=== PATIENT | female | born 1975 | race Caucasian/White ===

== ENCOUNTER 2018-03-03 20:21 | Emergency (ER) | payer MEDICAID, OTHER ==
[~2018-03-03] VITALS: Ht 165.1 cm; Wt 68.0 kg
[~2018-03-03 20:21] MED LIST: FLUO-1 PO; VIST25CA PO
[2018-03-03 20:34] VITALS: BP 130/86; PULSE 104; RESP 16; TEMP 98.4; O2SAT 100
--- NOTE | 2018-03-03 21:13 | PD ---
HPI Chief Complaint: Psychiatric Symptoms Time Seen by Provider: 20:57 Travel History International Travel<30 days: No Contact w/Intl Traveler<30days: No Traveled to known affect area: No History of Present Illness HPI 42-year-old white female presents emergency department under Antonio act by PD. The patient allegedly had sent suicide suggested text messages to her aunt. She had informed police. Patient was placed in the custody. She became very agitated and combative. She started spitting and resisting. The patient admits to being a functional alcoholic and drinking today. The patient states that she lost her job yesterday and her boyfriend broke up her as well. She admits to feeling depressed but she does not have suicidal ideation. No homicidal ideation. She denies any toxic ingestions. She does smoke cigarettes , drinks alcohol on a daily basis, and smokes marijuana on occasion. She denies any medical complaints. PFSH Past Medical History Narrative Medical Anxiety, depression, ADD, chronic alcohol abuse Bipolar Disorder: Yes Anxiety: Yes Depression: Yes Heart Rhythm Problems: No Cardiac Catheterization: No Cardiovascular Problems: Yes (mvp) High Cholesterol: No Congestive Heart Failure: No Diabetes: No Diminished Hearing: No Gastrointestinal Disorders: No Genitourinary: No Heparin Induced Thrombocytopen: No Hypertension: No Musculoskeletal: No Neurologic: No Reproductive: No Respiratory: No Immunizations Current: Yes Sleep Apnea: No Tetanus Vaccination: > 5 Years Influenza Vaccination: Yes ?: Unknown LMP: 02/16/18 : 2 Para: 1 : 1 Past Surgical History Coronary Artery Bypass Graft: No Other Surgery: Yes (BREAST AUGMENTATION) Family History Family Myocardial Infarction: No Social History Alcohol Use: Yes Tobacco Use: Yes Substance Use: Yes Allergies-Medications (Allergen,Severity, Reaction): Coded Allergies: Sulfa (Sulfonamide Antibiotics) (Unverified Allergy, Mild, CHILDHOOD REACTION, 03/03/18) Reported Meds & Prescriptions Reported Meds & Active Scripts Active Reported Vistaril (Hydroxyzine Pamoate) 25 Mg Cap 30 Mg PO BID PRN Prozac (Fluoxetine HCl) 10 Mg Cap 30 Mg PO BID Review of Systems General / Constitutional: No: Fever Eyes: No: Visual changes HENT: No: Headaches Cardiovascular: No: Chest Pain or Discomfort Respiratory: No: Shortness of Breath Gastrointestinal: No: Abdominal Pain Genitourinary: No: Dysuria Musculoskeletal: No: Pain Skin: No Rash Neurologic: No: Weakness Psychiatric: Positive: Anxiety, Depression, Mood Disorder, Substance Abuse, No : Suicidal Ideations, Disorder of Thought, Homicidal Ideation Endocrine: No: Polydipsia Hematologic/Lymphatic: No: Easy Bruising Physical Exam Narrative GENERAL: Well-nourished, well-developed patient. Patient smells of EtOH. She appears intoxicated. SKIN: Warm and dry. HEAD: Normocephalic and atraumatic. EYES: No scleral icterus. No injection or drainage. ENT: No nasal drainage noted. Mucous membranes pink. Airway patent. NECK: Supple, trachea midline. Moves head freely without obvious discomfort. CARDIOVASCULAR: Regular rate and rhythm without murmurs, gallops, or rubs. RESPIRATORY: Breath sounds equal bilaterally. No accessory muscle use. GASTROINTESTINAL: Abdomen soft, non-tender, nondistended. EXTREMITIES: No cyanosis or edema. BACK: Nontender without obvious deformity. No CVA tenderness. NEURO: Patient is alert and oriented. no sensorimotor deficits. Nonfocal. Normal speech. PSYCH: No delusions. No auditory or visual hallucinations. Data Data Last Documented VS Vital Signs Date Time Temp Pulse Resp B/P (MAP) Pulse Ox O2 Delivery O2 Flow Rate FiO2 03/03/18 20:34 98.4 104 16 130/86 (101) 100 Orders Orders Complete Blood Count With Diff (03/03/18 20:45) Comprehensive Metabolic Panel (03/03/18 20:45) Urinalysis - C+S If Indicated (03/03/18 20:45) Ed Urine Pregnancytest Poc (03/03/18 20:45) Psych Screen (03/03/18 20:45) Drug Screen, Random Urine (03/03/18 20:45) Alcohol (Ethanol) (03/03/18 20:45) Salicylates (Aspirin) (03/03/18 20:45) Tylenol (Acetaminophen) (03/03/18 20:45) Labs Laboratory Tests Test 03/03/18 20:50 White Blood Count 6.4 TH/MM3 Red Blood Count 4.22 MIL/MM3 Hemoglobin 14.0 GM/DL Hematocrit 40.4 % Mean Corpuscular Volume 95.6 FL Mean Corpuscular Hemoglobin 33.1 PG Mean Corpuscular Hemoglobin Concent 34.6 % Red Cell Distribution Width 13.0 % Platelet Count 337 TH/MM3 Mean Platelet Volume 7.1 FL Neutrophils (%) (Auto) 43.5 % Lymphocytes (%) (Auto) 48.1 % Monocytes (%) (Auto) 5.7 % Eosinophils (%) (Auto) 1.6 % Basophils (%) (Auto) 1.1 % Neutrophils # (Auto) 2.8 TH/MM3 Lymphocytes # (Auto) 3.1 TH/MM3 Monocytes # (Auto) 0.4 TH/MM3 Eosinophils # (Auto) 0.1 TH/MM3 Basophils # (Auto) 0.1 TH/MM3 CBC Comment DIFF FINAL Differential Comment Urine Color COLORLESS Urine Turbidity CLEAR Urine pH 5.0 Urine Specific [place] 1.001 Urine Protein NEG mg/dL Urine Glucose (UA) NEG mg/dL Urine Ketones NEG mg/dL Urine Occult Blood NEG Urine Nitrite NEG Urine Bilirubin NEG Urine Urobilinogen LESS THAN 2.0 MG/DL Urine Leukocyte Esterase NEG Urine RBC 1 /hpf Urine WBC LESS THAN 1 /hpf Urine Squamous Epithelial Cells <1 /hpf Urine Bacteria OCC /hpf Microscopic Urinalysis Comment CULT NOT INDICATED Blood Urea Nitrogen 15 MG/DL Creatinine 0.77 MG/DL Random Glucose 97 MG/DL Total Protein 7.7 GM/DL Albumin 4.0 GM/DL Calcium Level 8.5 MG/DL Alkaline Phosphatase 67 U/L Aspartate Amino Transf (AST/SGOT) 21 U/L Alanine Aminotransferase (ALT/SGPT) 29 U/L Total Bilirubin 0.1 MG/DL Sodium Level 145 MEQ/L Potassium Level 4.2 MEQ/L Chloride Level 111 MEQ/L Carbon Dioxide Level 24.8 MEQ/L Anion Gap 9 MEQ/L Estimat Glomerular Filtration Rate 82 ML/MIN Salicylates Level 1.7 MG/DL Urine Opiates Screen NEG Acetaminophen Level LESS THAN 2.0 MCG/ML Urine Barbiturates Screen NEG Urine Amphetamines Screen NEG Urine Benzodiazepines Screen NEG Urine Cocaine Screen NEG Urine Cannabinoids Screen NEG Ethyl Alcohol Level 313 MG/DL MDM Medical Decision Making Medical Screen Exam Complete: Yes Emergency Medical Condition: Yes Medical Record Reviewed: Yes Interpretation(s) Laboratory Tests Test 03/03/18 20:50 White Blood Count 6.4 TH/MM3 Red Blood Count 4.22 MIL/MM3 Hemoglobin 14.0 GM/DL Hematocrit 40.4 % Mean Corpuscular Volume 95.6 FL Mean Corpuscular Hemoglobin 33.1 PG Mean Corpuscular Hemoglobin Concent 34.6 % Red Cell Distribution Width 13.0 % Platelet Count 337 TH/MM3 Mean Platelet Volume 7.1 FL Neutrophils (%) (Auto) 43.5 % Lymphocytes (%) (Auto) 48.1 % Monocytes (%) (Auto) 5.7 % Eosinophils (%) (Auto) 1.6 % Basophils (%) (Auto) 1.1 % Neutrophils # (Auto) 2.8 TH/MM3 Lymphocytes # (Auto) 3.1 TH/MM3 Monocytes # (Auto) 0.4 TH/MM3 Eosinophils # (Auto) 0.1 TH/MM3 Basophils # (Auto) 0.1 TH/MM3 CBC Comment DIFF FINAL Differential Comment Urine Color COLORLESS Urine Turbidity CLEAR Urine pH 5.0 Urine Specific [place] 1.001 Urine Protein NEG mg/dL Urine Glucose (UA) NEG mg/dL Urine Ketones NEG mg/dL Urine Occult Blood NEG Urine Nitrite NEG Urine Bilirubin NEG Urine Urobilinogen LESS THAN 2.0 MG/DL Urine Leukocyte Esterase NEG Urine RBC 1 /hpf Urine WBC LESS THAN 1 /hpf Urine Squamous Epithelial Cells <1 /hpf Urine Bacteria OCC /hpf Microscopic Urinalysis Comment CULT NOT INDICATED Blood Urea Nitrogen 15 MG/DL Creatinine 0.77 MG/DL Random Glucose 97 MG/DL Total Protein 7.7 GM/DL Albumin 4.0 GM/DL Calcium Level 8.5 MG/DL Alkaline Phosphatase 67 U/L Aspartate Amino Transf (AST/SGOT) 21 U/L Alanine Aminotransferase (ALT/SGPT) 29 U/L Total Bilirubin 0.1 MG/DL Sodium Level 145 MEQ/L Potassium Level 4.2 MEQ/L Chloride Level 111 MEQ/L Carbon Dioxide Level 24.8 MEQ/L Anion Gap 9 MEQ/L Estimat Glomerular Filtration Rate 82 ML/MIN Salicylates Level 1.7 MG/DL Urine Opiates Screen NEG Acetaminophen Level LESS THAN 2.0 MCG/ML Urine Barbiturates Screen NEG Urine Amphetamines Screen NEG Urine Benzodiazepines Screen NEG Urine Cocaine Screen NEG Urine Cannabinoids Screen NEG Ethyl Alcohol Level 313 MG/DL Differential Diagnosis MDM: High Differential diagnoses: Schizophrenia, schizoaffective disorder, bipolar, anxiety, depression, adjustment reaction, mood disorder NOS, ODD, depressive disorder NOS, dementia, dementia with agitation, psychosis NOS, substance induced mood disorder, DMDD, Asperger syndrome, infection,electrolyte abnormality, malingering. Narrative Course Mental health screening discussed with the patient. Psychiatric screen ordered. The patient has been medically cleared. This is medical clearance for psychiatric admission, alcohol dependence with intoxication Diagnosis Primary Impression: Medical clearance for psychiatric admission Additional Impression: Alcoholism with intoxication Condition: Stable Gianluca Stevens Mar 03, 2018 21:13
[2018-03-03 21:14] LABS: AUTOMATED NEUTROPHIL # 2.8 TH/MM3 (1.8-7.7); BASOPHIL # 0.1 TH/MM3 (0-0.2); BASOPHIL % 1.1 % (0.0-2.0); EOSINOPHIL # 0.1 TH/MM3 (0-0.4); EOSINOPHIL % 1.6 % (0.0-4.0); HEMATOCRIT 40.4 % (35.0-46.0); LYMPH % 48.1 % (9.0-44.0); LYMPHOCYTE # 3.1 TH/MM3 (1.0-4.8); MEAN CELL VOLUME 95.6 FL (80.0-100.0); MEAN CORPUSCULAR HEMOGLOBIN 33.1 PG (27.0-34.0); MEAN CORPUSCULAR HGB CONC 34.6 % (32.0-36.0); MEAN PLATELET VOLUME 7.1 FL (7.0-11.0); MONO % 5.7 % (0.0-8.0); MONOCYTE # 0.4 TH/MM3 (0-0.9); NEUT % 43.5 % (16.0-70.0); PLATELET COUNT 337 TH/MM3 (150-450); RED BLOOD COUNT 4.22 MIL/MM3 (4.00-5.30); WHITE BLOOD COUNT 6.4 TH/MM3 (4.0-11.0)
[2018-03-03 21:15] LABS: BACTERIA, URINE OCC /hpf; BILIRUBIN, URINE NEG (NEG); BLOOD, URINE NEG (NEG); GLUCOSE,URINE NEG (NEG); KETONE, URINE NEG (NEG); NITRITE,URINE NEG (NEG); SQUAMOUS EPITHELIAL CELL URINE <1 /hpf (0-5); URINE COLOR COLORLESS (YELLW/STRAW); URINE LEUKOCYTE ESTERASE NEG (NEG)
[2018-03-03 21:32] LABS: AST (GOT) 21 U/L (15-37); BICARBONATE 24.8 MEQ/L (21.0-32.0); BLOOD UREA NITROGEN 15 MG/DL (7-18); CALCIUM 8.5 MG/DL (8.5-10.1); CHLORIDE 111 MEQ/L (98-107); CREATININE 0.77 MG/DL (0.50-1.00); GLOMERULAR FILTRATION RATE 82 ML/MIN (>89); GLUCOSE,RANDOM 97 MG/DL (74-106); SODIUM (NA) 145 MEQ/L (136-145)
[2018-03-03 21:33] LABS: ALT (GPT) 29 U/L (10-53)
[2018-03-03 21:34] LABS: ALKALINE PHOSPHATASE 67 U/L (45-117); TOTAL BILIRUBIN ADULT 0.1 MG/DL (0.2-1.0); TOTAL PROTEIN 7.7 GM/DL (6.4-8.2)
[2018-03-03 21:51] LABS: ACETAMINOPHEN LESS THAN 2.0 MCG/ML (10.0-30.0)
[2018-03-04 02:12] VITALS: BP 118/58; PULSE 100; RESP 16; TEMP 99.2; O2SAT 95
[2018-03-04 05:41] VITALS: BP 125/81; PULSE 75; RESP 18; TEMP 98.2; O2SAT 98
[2018-03-04 14:05] VITALS: BP 139/86; PULSE 65; RESP 20; TEMP 97.4; O2SAT 99
--- NOTE | 2018-03-04 18:19 | PD ---
Data Data Last Documented VS Vital Signs Date Time Temp Pulse Resp B/P (MAP) Pulse Ox O2 Delivery O2 Flow Rate FiO2 03/04/18 18:28 98.2 62 20 126/76 (93) 97 Room Air Orders Orders Complete Blood Count With Diff (03/03/18 20:45) Comprehensive Metabolic Panel (03/03/18 20:45) Urinalysis - C+S If Indicated (03/03/18 20:45) Ed Urine Pregnancytest Poc (03/03/18 20:45) Psych Screen (03/03/18 20:45) Drug Screen, Random Urine (03/03/18 20:45) Alcohol (Ethanol) (03/03/18 20:45) Salicylates (Aspirin) (03/03/18 20:45) Tylenol (Acetaminophen) (03/03/18 20:45) Diet 1800 Ada Cons Carb (03/04/18 Breakfast) Diet Regular Basic (03/04/18 Lunch) Ed Discharge Order (03/04/18 18:17) Labs Laboratory Tests Test 03/03/18 20:50 White Blood Count 6.4 TH/MM3 Red Blood Count 4.22 MIL/MM3 Hemoglobin 14.0 GM/DL Hematocrit 40.4 % Mean Corpuscular Volume 95.6 FL Mean Corpuscular Hemoglobin 33.1 PG Mean Corpuscular Hemoglobin Concent 34.6 % Red Cell Distribution Width 13.0 % Platelet Count 337 TH/MM3 Mean Platelet Volume 7.1 FL Neutrophils (%) (Auto) 43.5 % Lymphocytes (%) (Auto) 48.1 % Monocytes (%) (Auto) 5.7 % Eosinophils (%) (Auto) 1.6 % Basophils (%) (Auto) 1.1 % Neutrophils # (Auto) 2.8 TH/MM3 Lymphocytes # (Auto) 3.1 TH/MM3 Monocytes # (Auto) 0.4 TH/MM3 Eosinophils # (Auto) 0.1 TH/MM3 Basophils # (Auto) 0.1 TH/MM3 CBC Comment DIFF FINAL Differential Comment Urine Color COLORLESS Urine Turbidity CLEAR Urine pH 5.0 Urine Specific [place] 1.001 Urine Protein NEG mg/dL Urine Glucose (UA) NEG mg/dL Urine Ketones NEG mg/dL Urine Occult Blood NEG Urine Nitrite NEG Urine Bilirubin NEG Urine Urobilinogen LESS THAN 2.0 MG/DL Urine Leukocyte Esterase NEG Urine RBC 1 /hpf Urine WBC LESS THAN 1 /hpf Urine Squamous Epithelial Cells <1 /hpf Urine Bacteria OCC /hpf Microscopic Urinalysis Comment CULT NOT INDICATED Blood Urea Nitrogen 15 MG/DL Creatinine 0.77 MG/DL Random Glucose 97 MG/DL Total Protein 7.7 GM/DL Albumin 4.0 GM/DL Calcium Level 8.5 MG/DL Alkaline Phosphatase 67 U/L Aspartate Amino Transf (AST/SGOT) 21 U/L Alanine Aminotransferase (ALT/SGPT) 29 U/L Total Bilirubin 0.1 MG/DL Sodium Level 145 MEQ/L Potassium Level 4.2 MEQ/L Chloride Level 111 MEQ/L Carbon Dioxide Level 24.8 MEQ/L Anion Gap 9 MEQ/L Estimat Glomerular Filtration Rate 82 ML/MIN Salicylates Level 1.7 MG/DL Urine Opiates Screen NEG Acetaminophen Level LESS THAN 2.0 MCG/ML Urine Barbiturates Screen NEG Urine Amphetamines Screen NEG Urine Benzodiazepines Screen NEG Urine Cocaine Screen NEG Urine Cannabinoids Screen NEG Ethyl Alcohol Level 313 MG/DL MDM Supervised Visit with SHAUNA: Yes Narrative Course Patient seen and examined by me after seen by Salazar SABILLON for the psychiatric department. She does not believe the patient to be threat to herself or to others. She has made contact with the patient's mother whom she lives with and states the patient's never had suicidal homicidal intent before. Patient states that her text messages last night were an attempt to make "it and" and she states that it was the dramatic situation between her and her friends and her now ex-boyfriend. Patient adamantly denies any suicidal homicidal ideation. She was heavily intoxicated last night but is now clinically sober. She is no longer a threat to herself or to others and does not meet Antonio act criteria. I lifted the Antonio act and discharged her home. Diagnosis Primary Impression: Medical clearance for psychiatric admission Additional Impressions: Alcoholism with intoxication Adjustment disorder Disposition: 01 DISCHARGE HOME Condition: Stable Jaime Agarwal MD Mar 04, 2018 18:19
[2018-03-04 18:28] VITALS: BP_SYST 126; BP_SYST 139; BP_DIAS 76; BP_DIAS 86; PULSE 62; PULSE 65; RESP 20; TEMP 97.4; TEMP 98.2; O2SAT 97; O2SAT 99
--- NOTE | 2018-03-04 19:29 | PD ---
History of Present Illness Chief Complaint: Psychiatric Symptoms Time Seen by Provider: 17:45 Travel History International Travel<30 Days: No Contact w/Intl Traveler<30days: No Known affected area: No Legal Status Legal Status: Antonio Act Antonio Act Signed By: Keri Robb Antonio Act Comment: [employer] [facility][id number] History of Present Illness: This is a 42-year-old single, female who presents under a Antonio act for reportedly sending a text message to her aunt stating that she wanted to end everything. Patient has previously been seen at this facility for polysubstance abuse issues. She was admitted inpatient several years ago for substance-induced mood disorder. Reviewed electronic medical record, labs, discuss case with staff. Patient was evaluated in her room and J pod. She reports that she "just lost my job and fianc the past few days". She denies being suicidal, homicidal, having visual or auditory hallucinations. Her speech is clear, logical, and organized. She is alert and oriented 4. There is no indication of internal stimulation or thought blocking. I can elicit no delusional material at this time. Patient reports that she had been working for she [employer] restaurant and after a breakup with her fianc of 6 years she failed to set up for work at which time she was terminated. She states that she has moved back in with her mother. With patient's permission called mother to obtain collateral information. Mother states that she has no qualms about her daughter returning home. She states that she will be at the house to keep an eye on her however, she does not feel that patient would ever try to take her in life. She further states that "I do not know how this happened". She reports that patient has never attempted suicide in the past. Patient reports that she has diagnoses of ADHD, OCD, and bipolar disorder. She reports that she is compliant with her medications and follows up with Chuy at [facility]. 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 PFSH Past Medical History Bipolar Disorder: Yes Anxiety: Yes Depression: Yes Heart Rhythm Problems: No Cardiac Catheterization: No Cardiovascular Problems: Yes (mvp) High Cholesterol: No Congestive Heart Failure: No Diabetes: No Diminished Hearing: No Gastrointestinal Disorders: No Genitourinary: No Heparin Induced Thrombocytopen: No Hypertension: No Musculoskeletal: No Neurologic: No Reproductive: No Respiratory: No Immunizations Current: Yes Sleep Apnea: No Tetanus Vaccination: > 5 Years Influenza Vaccination: Yes ?: Unknown LMP: 02/16/18 : 2 Para: 1 : 1 Past Surgical History Coronary Artery Bypass Graft: No Other Surgery: Yes (BREAST AUGMENTATION) Psychiatric History Psychiatric History ADHD, OCD, bipolar disorder all self-reported. Hx Psychiatric Treatment: DEPRESSION, BI-POLAR DISORDER History of Inpatient Treatment: Yes Guns or firearms in home: No Social History Patient reports that she smokes approximately 1 pack of cigarettes per day and drinks EtOH "socially". She claims to use marijuana on a social basis. Hx Alcohol Use: Yes Hx Tobacco Use: Yes Hx Substance Use: No Substance Use Type: Alcohol, Nicotine/Cigarettes Other Substances Used: ADMITS TO A 1/2 BOTTLE TAQUILLA YESTERDAY -FOR THE FIRST TIME IN 7 DAYS- Hx of Substance Use Treatment: No Family Psychiatric History Patient states that she is unaware of there is been any familial mental health illness diagnoses. However, she states she knows there is been no suicide attempts. Allergies-Medications (Allergen,Severity, Reaction): Coded Allergies: Sulfa (Sulfonamide Antibiotics) (Unverified Allergy, Mild, CHILDHOOD REACTION, 03/03/18) Reported Meds & Prescriptions Reported Meds & Active Scripts Active Reported Vistaril (Hydroxyzine Pamoate) 25 Mg Cap 30 Mg PO BID PRN Prozac (Fluoxetine HCl) 10 Mg Cap 30 Mg PO BID Mental Status Examination Appearance: Appropriate Consciousness: Alert Orientation: x4 Motor Activity: Normal gait Speech: Unremarkable Language: Adequate Fund of Knowledge: Adequate Attention and Concentration: Adequate Memory: Unremarkable Mood: Appropriate, Good Affect: Appropriate, Euthymic Thought Process & Associations: Intact Thought Content: Appropriate Hallucination Type: None Delusion Type: None Suicidal Ideation: No Suicidal Plan: No Suicidal Intention: No Homicidal Ideation: No Homicidal Plan: No Homicidal Intention: No Insight: Fair Judgment: Adequate MDM Medical Decision Making Medical Record Reviewed: Yes Assessment/Plan 42-year-old single, female who presents under Antonio act to this facility for reportedly texting her and that she wanted to "and everything". Upon examination the patient today she is awake, alert, and oriented 4. Her speech is clear, logical, and organized. There is no indication of internal stimulation or thought blocking. Her mood is good her affect is euthymic. She maintains eye contact and interacts appropriately throughout the examination. She reports that she is currently living with her mother after recently losing her job and having breakup with her fianc. Consulted with Dr. Agarwal, ED physician, who agrees with my assessment the patient does not meet Antonio act criteria or inpatient admission criteria. He therefore has lifted her Antonio act. She will be discharged home with instructions to follow-up with Chuy at [facility] as well as being told that she could return here should her condition worsen. Orders Orders Complete Blood Count With Diff (03/03/18 20:45) Comprehensive Metabolic Panel (03/03/18 20:45) Urinalysis - C+S If Indicated (03/03/18 20:45) Ed Urine Pregnancytest Poc (03/03/18 20:45) Psych Screen (03/03/18 20:45) Drug Screen, Random Urine (03/03/18 20:45) Alcohol (Ethanol) (03/03/18 20:45) Salicylates (Aspirin) (03/03/18 20:45) Tylenol (Acetaminophen) (03/03/18 20:45) Diet 1800 Ada Cons Carb (03/04/18 Breakfast) Diet Regular Basic (03/04/18 Lunch) Ed Discharge Order (03/04/18 18:17) Results Vital Signs Date Time Temp Pulse Resp B/P (MAP) Pulse Ox O2 Delivery O2 Flow Rate FiO2 03/04/18 18:28 98.2 62 20 126/76 (93) 97 Room Air 03/04/18 14:05 97.4 65 20 139/86 (103) 99 Room Air 03/04/18 05:41 98.2 75 18 125/81 (96) 98 Room Air 03/04/18 02:12 99.2 100 16 118/58 (78) 95 Room Air 03/03/18 20:34 98.4 104 16 130/86 (101) 100 Laboratory Tests Test 03/03/18 20:50 White Blood Count 6.4 Red Blood Count 4.22 Hemoglobin 14.0 Hematocrit 40.4 Mean Corpuscular Volume 95.6 Mean Corpuscular Hemoglobin 33.1 Mean Corpuscular Hemoglobin Concent 34.6 Red Cell Distribution Width 13.0 Platelet Count 337 Mean Platelet Volume 7.1 Neutrophils (%) (Auto) 43.5 Lymphocytes (%) (Auto) 48.1 Monocytes (%) (Auto) 5.7 Eosinophils (%) (Auto) 1.6 Basophils (%) (Auto) 1.1 Neutrophils # (Auto) 2.8 Lymphocytes # (Auto) 3.1 Monocytes # (Auto) 0.4 Eosinophils # (Auto) 0.1 Basophils # (Auto) 0.1 CBC Comment DIFF FINAL Differential Comment Urine Color COLORLESS Urine Turbidity CLEAR Urine pH 5.0 Urine Specific [place] 1.001 Urine Protein NEG Urine Glucose (UA) NEG Urine Ketones NEG Urine Occult Blood NEG Urine Nitrite NEG Urine Bilirubin NEG Urine Urobilinogen LESS THAN 2.0 Urine Leukocyte Esterase NEG Urine RBC 1 Urine WBC LESS THAN 1 Urine Squamous Epithelial Cells <1 Urine Bacteria OCC Microscopic Urinalysis Comment CULT NOT INDICATED Blood Urea Nitrogen 15 Creatinine 0.77 Random Glucose 97 Total Protein 7.7 Albumin 4.0 Calcium Level 8.5 Alkaline Phosphatase 67 Aspartate Amino Transf (AST/SGOT) 21 Alanine Aminotransferase (ALT/SGPT) 29 Total Bilirubin 0.1 Sodium Level 145 Potassium Level 4.2 Chloride Level 111 Carbon Dioxide Level 24.8 Anion Gap 9 Estimat Glomerular Filtration Rate 82 Salicylates Level 1.7 Urine Opiates Screen NEG Acetaminophen Level LESS THAN 2.0 Urine Barbiturates Screen NEG Urine Amphetamines Screen NEG Urine Benzodiazepines Screen NEG Urine Cocaine Screen NEG Urine Cannabinoids Screen NEG Ethyl Alcohol Level 313 Diagnosis Primary Impression: Adjustment disorder Psychiatrically Cleared: Yes Departure Forms: Tests/Procedures Patient Instructions: General Instructions Additional Instructions: FOLLOW UP WITH PSYCHIATRIC FOLLOW UP PRIMARY CARE PHYCISIAN RETURN ED IF SIGN SYMTOMS PERSIST OR WORSEN Disposition: 01 DISCHARGE HOME Condition: Stable Amberly Conklin Mar 04, 2018 19:29
== END 2018-03-04 18:32 | disposition home or self-care (01) ==
LOC: NEPD 20:21 → NEPJ 03-04 18:32
DX: Z02.89 Encounter for other administrative examinations (principal); F10.229 Alcohol dependence with intoxication, unspecified; F43.20 Adjustment disorder, unspecified; Y90.8 Blood alcohol level of 240 mg/100 ml or more; F31.9 Bipolar disorder, unspecified; F41.8 Other specified anxiety disorders; Z72.0 Tobacco use; Z79.899 Other long term (current) drug therapy
CPT/HCPCS: 80053; 80307; 81001; 84703; 85025; 99283

== ENCOUNTER 2018-05-02 09:37 | Emergency (ER) | payer MEDICAID, OTHER ==
[~2018-05-02] VITALS: Ht 170.2 cm; Wt 73.0 kg
[2018-05-02 09:44] VITALS: BP 136/84; PULSE 109; RESP 20; TEMP 98.4; O2SAT 96
[2018-05-02] MEDS ORDERED: TRAZ50TA12 PO (09:57)
[2018-05-02] MEDS ORDERED: PROP10TA6 PO (10:00)
[2018-05-02] MEDS ORDERED: ONDANSETRON ODT 4 MG TAB PO ONE (10:30)
[2018-05-02] MEDS ORDERED: SODIUM CHLOR 0.9% 1000 ML INJ 1,000 ML IV ONE (10:30)
[2018-05-02 10:44] LABS: AUTOMATED NEUTROPHIL # 4.7 TH/MM3 (1.8-7.7); BASOPHIL # 0.1 TH/MM3 (0-0.2); BASOPHIL % 0.9 % (0.0-2.0); EOSINOPHIL # 0.1 TH/MM3 (0-0.4); EOSINOPHIL % 1.8 % (0.0-4.0); HEMATOCRIT 38.3 % (35.0-46.0); HEMOGLOBIN 13.3 GM/DL (11.6-15.3); LYMPH % 16.6 % (9.0-44.0); LYMPHOCYTE # 1.2 TH/MM3 (1.0-4.8); MEAN CELL VOLUME 98.1 FL (80.0-100.0); MEAN CORPUSCULAR HGB CONC 34.7 % (32.0-36.0); MEAN PLATELET VOLUME 6.7 FL (7.0-11.0); MONO % 14.7 % (0.0-8.0); PLATELET COUNT 290 TH/MM3 (150-450); RED CELL DISTRIBUTION WIDTH 15.9 % (11.6-17.2); WHITE BLOOD COUNT 7.1 TH/MM3 (4.0-11.0)
[2018-05-02 10:48] LABS: BACTERIA, URINE FEW /hpf; BILIRUBIN, URINE NEG (NEG); BLOOD, URINE SMALL (NEG); GLUCOSE,URINE 50 mg/dL (NEG); HYALINE CAST, URINE 1 /lpf (RARE); KETONE, URINE 20 mg/dL (NEG); MUCUS URINE MOD /lpf (OCC); NITRITE,URINE NEG (NEG); SQUAMOUS EPITHELIAL CELL URINE 19 /hpf (0-5); URINE COLOR YELLOW (YELLW/STRAW); URINE LEUKOCYTE ESTERASE NEG (NEG)
[2018-05-02 11:01] LABS: AST (GOT) 127 U/L (15-37); BICARBONATE 24.5 MEQ/L (21.0-32.0); BLOOD UREA NITROGEN 13 MG/DL (7-18); CALCIUM 8.2 MG/DL (8.5-10.1); CHLORIDE 102 MEQ/L (98-107); CREATININE 0.74 MG/DL (0.50-1.00); GLOMERULAR FILTRATION RATE 86 ML/MIN (>89); GLUCOSE,RANDOM 130 MG/DL (74-106); SODIUM (NA) 138 MEQ/L (136-145)
[2018-05-02 11:02] LABS: ALT (GPT) 113 U/L (10-53)
[2018-05-02 11:04] LABS: ALKALINE PHOSPHATASE 64 U/L (45-117); TOTAL BILIRUBIN ADULT 0.3 MG/DL (0.2-1.0); TOTAL PROTEIN 7.3 GM/DL (6.4-8.2)
--- NOTE | 2018-05-02 11:34 | PD ---
HPI Chief Complaint: GI Complaint Time Seen by Provider: 10:01 Travel History International Travel<30 days: No Contact w/Intl Traveler<30days: No Traveled to known affect area: No History of Present Illness HPI Patient is a 42 year old female who comes in because she thinks she has " alcohol poisoning." She says she has had vomiting for "a while." She says she has been drinking 'a lot' for a few months and thinks she is "killing herself." She is a poor historian and only vaguely describes her symptoms. She says she last drank last night. She says she has pain to her right flank. She says her urine has a fowl odor and she has some dysuria. She denies fever or chills. Severity is mild. PFSH Past Medical History Bipolar Disorder: Yes Anxiety: Yes Depression: Yes Heart Rhythm Problems: No Cardiac Catheterization: No Cardiovascular Problems: Yes (mvp) High Cholesterol: No Congestive Heart Failure: No Diabetes: No Diminished Hearing: No Gastrointestinal Disorders: No Genitourinary: No Heparin Induced Thrombocytopen: No Hypertension: No Musculoskeletal: No Neurologic: No Reproductive: No Respiratory: No Immunizations Current: Yes Sleep Apnea: No ?: Not : 2 Para: 1 : 1 Past Surgical History Coronary Artery Bypass Graft: No Other Surgery: Yes (BREAST AUGMENTATION) Social History Alcohol Use: Yes Tobacco Use: Yes Substance Use: No Allergies-Medications (Allergen,Severity, Reaction): Coded Allergies: Sulfa (Sulfonamide Antibiotics) (Unverified Allergy, Mild, CHILDHOOD REACTION, 05/02/18) Reported Meds & Prescriptions Reported Meds & Active Scripts Active Reported Propranolol (Propranolol HCl) Unknown Strength Tab Unknown Dose PO Q12HR Trazodone (Trazodone HCl) 50 Mg Tab 50 Mg PO HS Review of Systems Except as stated in HPI: all other systems reviewed are Neg General / Constitutional: No: Fever, Chills HENT: No: Headaches, Lightheadedness Cardiovascular: No: Chest Pain or Discomfort Respiratory: No: Shortness of Breath Gastrointestinal: Positive: Nausea, Vomiting Genitourinary: Positive: Dysuria, Flank Pain Skin: No Rash, No Change in Pigmentation Neurologic: No: Weakness, Dizziness Physical Exam Narrative GENERAL: Awake and alert, in no acute distress. SKIN: Focused skin assessment warm/dry. No wounds or signs of infection. HEAD: Atraumatic. Normocephalic. EYES: Pupils equal and round. No scleral icterus. EOMI. ENT: No tongue fasciculations. Mucous membranes pink and moist. NECK: Trachea midline. No JVD. CARDIOVASCULAR: Regular rate and rhythm. No murmur appreciated. RESPIRATORY: No accessory muscle use. Clear to auscultation. Breath sounds equal bilaterally. GASTROINTESTINAL: Abdomen soft, non-tender, nondistended. Right CVA tenderness. MUSCULOSKELETAL: No obvious deformities. No clubbing. No cyanosis. No edema. NEUROLOGICAL: Awake and alert. No obvious cranial nerve deficits. Motor grossly within normal limits. Normal speech. PSYCHIATRIC: Appropriate mood and affect; insight and judgment normal. Data Data Last Documented VS Vital Signs Date Time Temp Pulse Resp B/P (MAP) Pulse Ox O2 Delivery O2 Flow Rate FiO2 05/02/18 09:44 98.4 109 20 136/84 (101) 96 Orders Orders Iv Access Insert/Monitor (05/02/18 10:17) Complete Blood Count With Diff (05/02/18 10:17) Comprehensive Metabolic Panel (05/02/18 10:17) Alcohol (Ethanol) (05/02/18 10:17) Urinalysis - C+S If Indicated (05/02/18 10:17) Ed Urine Pregnancytest Poc (05/02/18 10:17) Sodium Chlor 0.9% 1000 Ml Inj (Ns 1000 M (05/02/18 10:30) Ondansetron Odt (Zofran Odt) (05/02/18 10:30) Labs Laboratory Tests Test 05/02/18 10:30 White Blood Count 7.1 TH/MM3 Red Blood Count 3.90 MIL/MM3 Hemoglobin 13.3 GM/DL Hematocrit 38.3 % Mean Corpuscular Volume 98.1 FL Mean Corpuscular Hemoglobin 34.0 PG Mean Corpuscular Hemoglobin Concent 34.7 % Red Cell Distribution Width 15.9 % Platelet Count 290 TH/MM3 Mean Platelet Volume 6.7 FL Neutrophils (%) (Auto) 66.0 % Lymphocytes (%) (Auto) 16.6 % Monocytes (%) (Auto) 14.7 % Eosinophils (%) (Auto) 1.8 % Basophils (%) (Auto) 0.9 % Neutrophils # (Auto) 4.7 TH/MM3 Lymphocytes # (Auto) 1.2 TH/MM3 Monocytes # (Auto) 1.0 TH/MM3 Eosinophils # (Auto) 0.1 TH/MM3 Basophils # (Auto) 0.1 TH/MM3 CBC Comment DIFF FINAL Differential Comment Urine Color YELLOW Urine Turbidity CLOUDY Urine pH 5.0 Urine Specific [place] 1.023 Urine Protein 100 mg/dL Urine Glucose (UA) 50 mg/dL Urine Ketones 20 mg/dL Urine Occult Blood SMALL Urine Nitrite NEG Urine Bilirubin NEG Urine Urobilinogen LESS THAN 2 mg/dL Urine Leukocyte Esterase NEG Urine RBC 1 /hpf Urine WBC 4 /hpf Urine Squamous Epithelial Cells 19 /hpf Urine Bacteria FEW /hpf Urine Hyaline Casts 1 /lpf Urine Mucus MOD /lpf Microscopic Urinalysis Comment CULT NOT INDICATED Blood Urea Nitrogen 13 MG/DL Creatinine 0.74 MG/DL Random Glucose 130 MG/DL Total Protein 7.3 GM/DL Albumin 4.0 GM/DL Calcium Level 8.2 MG/DL Alkaline Phosphatase 64 U/L Aspartate Amino Transf (AST/SGOT) 127 U/L Alanine Aminotransferase (ALT/SGPT) 113 U/L Total Bilirubin 0.3 MG/DL Sodium Level 138 MEQ/L Potassium Level 3.6 MEQ/L Chloride Level 102 MEQ/L Carbon Dioxide Level 24.5 MEQ/L Anion Gap 12 MEQ/L Estimat Glomerular Filtration Rate 86 ML/MIN Ethyl Alcohol Level 203 MG/DL [facility] Medical Decision Making Medical Screen Exam Complete: Yes Emergency Medical Condition: Yes Medical Record Reviewed: Yes Differential Diagnosis UTI vs intoxication vs dehydration Narrative Course Patient is a 42 year old female who comes in complaining of nausea and vomiting. Exam shows right CVA tenderness. IV established, labs sent. Labs show elevated AST and ALT. Patient informed of these results. Alcohol level is 203. Given IVF and Zofran. Advised to quit drinking. Given a prescription for Cipro based on clinical symptoms of UTI. Observed in the ED until sober. Advised to drink plenty of fluids and follow up with a pcp. Advised to return to the ED as needed for any worsening symptoms. Diagnosis Primary Impression: Alcohol intoxication Qualified Codes: F10.920 - Alcohol use, unspecified with intoxication, uncomplicated Additional Impression: UTI (urinary tract infection) Qualified Codes: N30.00 - Acute cystitis without hematuria Referrals: [facility] for appointment Patient Instructions: Alcohol Intoxication (ED), General Instructions, Urinary Tract Infection in Women (ED) Additional Instructions: Take all of the antibiotics. Go to [facility] for help with detox. Drink plenty of fluids. Return to the ED as needed for any worsening symptoms. Scripts Ciprofloxacin (Cipro) 500 Mg Tab 500 MG PO BID for Infection for 7 Days, #14 TAB 0 Refills Prov: Nydia Travis MD 05/02/18 Disposition: 01 DISCHARGE HOME Condition: Stable Nydia Travis MD May 02, 2018 11:34
[2018-05-02] MEDS ORDERED: CIPR-9 PO (11:40)
[2018-05-02] MEDS ORDERED: METOCLOPRAMIDE HCL 10 MG/2 ML VIAL IV PUSH ONE (12:00)
== END 2018-05-02 12:51 | disposition home or self-care (01) ==
LOC: NEPD 09:37
DX: F10.920 Alcohol use, unspecified with intoxication, uncomplicated (principal); N30.00 Acute cystitis without hematuria; R11.2 Nausea with vomiting, unspecified; R10.9 Unspecified abdominal pain; Y90.7 Blood alcohol level of 200-239 mg/100 ml; F41.8 Other specified anxiety disorders; F31.9 Bipolar disorder, unspecified; Z72.0 Tobacco use; Z79.899 Other long term (current) drug therapy; Z86.79 Personal history of other diseases of the circulatory system
CPT/HCPCS: 80053; 80307; 81001; 84703; 85025; 96361; 96374; 99284; J2765; J7030